=== PATIENT | male | born 1950 ===

== ENCOUNTER 2018-04-09 12:00 | Inpatient (IN) | payer OTHER ==
[2018-04-09 12:36] VITALS: BMI 33.7
[2018-04-09 13:20] LABS: #Basophils 0.1 thou/uL (0.0-0.2); #Eosinphils 0.4 thou/uL (0.0-0.7); #Lymphocytes 2.3 thou/uL (1.20-3.40); #Monocytes 1.1 thou/uL (0.11-0.59); %Basophils 0.4 % (0.0-1.0); %Eosinophils 2.8 % (0.0-10.0); %Lymphocytes 14.2 % (21.0-51.0); %Monocytes 6.7 % (0.0-10.0); %Neutrophils 75.9 % (42.0-75.0); Hemoglobin 9.5 g/dL (14.0-18.0); Mean Corpuscular HGB CONC 34.6 g/dL (32.0-36.0); Mean Corpuscular Hemoglobin 30.8 pg (27.0-31.0); Mean Corpuscular Volume 89.3 fL (78.0-98.0); Mean Platelet Volume 7.2 fL (7.4-10.4); Platelet Count 176 thou/uL (130-400); RBC Distribution Width 12.3 % (11.5-14.5); Red Blood Cell (RBC) Count 3.09 mill/uL (4.70-6.10); White Blood Cell (WBC) Count 15.8 thou/uL (4.8-10.8)
[2018-04-09 13:41] LABS: Anion Gap 11 mmol/L (10-20); BUN (Urea Nitrogen) 56 mg/dL (8.4-25.7); Calc. Creatinine Clearance 116 mL/min (70-130); Calcium 8.3 mg/dL (7.8-10.44); Carbon Dioxide 21 mmol/L (23-31); Chloride 109 mmol/L (98-107); Estimated GFR-MDRD Greater than 90; Glucose 99 mg/dL (80-115); Potassium 4.8 mmol/L (3.5-5.1); Sodium 136 mmol/L (136-145)
[2018-04-09] MEDS ORDERED: Ondansetron HCl/PF 4 MG/2 ML Vial IVP PRN ×2 (14:01→19:40)
[2018-04-09] MEDS ORDERED: PROPOFOL 200 MG/20 ML VIAL ONE (15:08)
[2018-04-09] MEDS: Sodium Chloride 0.9% 1,000 ML IV SCH (15:19)
[2018-04-09] MEDS: Pantoprazole 80 MG in Sodium Chloride 0.9% 100 ML IVP SCH (15:21)
--- NOTE | 2018-04-09 15:31 | HP ---
REASON FOR ADMISSION: Gastrointestinal bleed, acute blood loss anemia. HISTORY OF PRESENTING ILLNESS: The patient gives history of having onset of diarrhea around 1:30 in the morning. The diarrhea was black in color. This happened multiple times, nearly 5-6 times and each time he had to sit on the toilet for a long time due to colicky pain and tenesmus. [place] nauseous once, but no vomiting as such. The patient states he started albuterol inhaler, prednisone and antibiotic for upper respiratory infection a week back or so. He also takes aspirin and Plavix, but no other pain medications. No prior upper or lower endoscopies done. 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 He is from [facility]. No prior history of similar episodes in the past. No history of peptic ulcer disease. PAST MEDICAL AND SURGICAL HISTORY: Coronary artery disease with prior coronary artery bypass graft x2, one was ?9 years ago for 4-vessel and has had a redo done 4 years back for 1 vessel, hypertension, dyslipidemia, likely chronic obstructive pulmonary disease. CURRENT MEDICATIONS: Patient takes Dana 180 mg p.o. daily, Norvasc 5 mg daily, atorvastatin 80 mg p.o. daily, carvedilol 12.5 mg twice daily, Plavix 75 mg p.o. daily, aspirin 81 mg p.o. daily, lisinopril 20 mg daily, prednisone, albuterol inhaler, which was recently started. ALLERGIES: AMOXICILLIN. PERSONAL HISTORY: Smokes half pack a day and was smoking heavier before and has been a smoker for nearly 40 years now. Does not abuse alcohol or drugs. Lives with his . FAMILY HISTORY: Mother at the age of 87 years. He has had dementia. Father of massive [place] at the age of 57 years. CODE STATUS: FULL. Power of ip technology transactions attorney is his . REVIEW OF SYSTEMS: The following complete review of systems was negative, unless otherwise mentioned in the HPI or below: Constitutional: Weight loss or gain, ability to conduct usual activities. Skin: Rash, itching. Eyes: Double vision, pain. ENT/Mouth: Nose bleeding, neck stiffness, pain, tenderness. Cardiovascular: Palpitations, dyspnea on exertion, orthopnea. Respiratory: Shortness of breath, wheezing, cough, hemoptysis, fever or night sweats. Gastrointestinal: Poor appetite, abdominal pain, heartburn, nausea, vomiting, constipation, or diarrhea. Genitourinary: Urgency, frequency, dysuria, nocturia. Musculoskeletal: Pain, swelling. Neurologic/Psychiatric: Anxiety, depression. Allergy/Immunologic: Skin rash, bleeding tendency. PHYSICAL EXAMINATION: GENERAL: Patient is a 67-year-old male who is currently not in any acute distress. VITAL SIGNS: Blood pressure 110/60, pulse 67 per minute, respiratory rate 18 per minute, temperature 97.6 degrees Fahrenheit, saturating 100% on room air. NECK: Supple, no elevated JVD. EYES: Extraocular muscles intact. Pupils reacting to light. ORAL CAVITY: Mucous membranes are dry. No exudates or congestion. CARDIOVASCULAR SYSTEM: S1, S2 heard. Regular rhythm. RESPIRATORY SYSTEM: Air entry 1+ bilateral. Scattered rhonchi plus bilateral. ABDOMEN: Soft, bowel sounds heard. No tenderness, rigidity or guarding. EXTREMITIES: No peripheral edema or calf tenderness. VASCULAR SYSTEM: Peripheral pulses 1+ bilateral, no ischemic ulcerations or gangrene. CENTRAL NERVOUS SYSTEM: No gross focal deficits noted. Patient is alert, awake , oriented well. PSYCHIATRIC SYSTEM: Patient's mood is euthymic. No hallucinations or delusions. LABORATORY DATA: Please note patient went to [facility] ER from where he was transferred here. Initial hemoglobin and hematocrit was 9 and 25 with platelet count of 160. Repeat hemoglobin and hematocrit done is 9 and 27 with platelet count of 176 here. Has a white count of 15, BUN 56, creatinine 0.7, serum bicarbonate is 21 with 75% neutrophils. One set of troponin was less than 0.05. PT/INR was 12.6 and 1.1 done at [facility]. CLINICAL IMPRESSION AND PLAN: The patient will be admitted to [facility] for GI bleed , likely upper with acute blood loss anemia. He will be on Protonix drip. We will keep him n.p.o. except medications. Dr. Pugh, wholesale loan processor has been consulted. We will continue his home medications of Norvasc, atorvastatin , Coreg, multivitamin for now. His lisinopril will be held due to acute kidney injury from gastrointestinal bleed. We will also place him on DuoNebs for now. We will continue to closely monitor him with serial hemoglobin and hematocrit. He is currently hemodynamically stable for now. [facility]
--- NOTE | 2018-04-09 15:54 | CON ---
DATE OF CONSULTATION: 04/09/2018 CONSULTING PHYSICIAN: Dr. Gill. REASON FOR CONSULTATION: GI bleed and COPD exacerbation. HISTORY OF PRESENT ILLNESS: This is a 67-year-old male from [place]. He is in town as part of [employer] for the football game at [employer] today. He has been feeling bad for the last 3-4 days. He saw his primary care physician last week and was prescribed some prednisone, some antibiot ics and some inhalers for difficulty with breathing. He has had a cough that has been unrelenting. Last night, he developed diarrhea. He has some black colored stools. He presented to an outlying ER today severely anemic and was brought here for further evaluation. PAST MEDICAL HISTORY: 1. Probable COPD. 2. Coronary artery disease. 3. Hypertension. 4. Myocardial infarction. PAST SURGICAL HISTORY: Coronary bypass grafting surgery. SOCIAL HISTORY: He is about a pack per day smoker. He is trying to quit. Does not consume alcohol, does not use illicit drugs. 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 He is supposed to be retired, but he continues to be quite busy with his work. MEDICATIONS PRIOR TO ADMISSION: He has been taking prednisone, Plavix, low-dose aspirin, some type o f inhaler, amlodipine 5 mg daily, atorvastatin 80 mg daily, carvedilol 12.5 mg b.i.d., Plavix 75 mg d aily, lisinopril 20 mg daily, aspirin 81 mg daily. ALLERGIES: AMOXICILLIN. REVIEW OF SYSTEMS: Twelve point review of systems otherwise negative. PHYSICAL EXAMINATION: VITAL SIGNS: Temperature 97.6, pulse 67, respirations 18, O2 sat 100%, blood pressure 110/59. GENERAL: He is awake and alert, in no distress. HEENT: Unremarkable. NECK: Without adenopathy, JVD, or bruits. LUNGS: He has diffuse bilateral expiratory wheezing. CARDIAC: S1, S2 regular, without murmur. ABDOMEN: Soft, nontender, nondistended. EXTREMITIES: No clubbing, cyanosis, or edema. LABORATORY DATA: Sodium 136, potassium 4.8, chloride 109, CO2 21, BUN 56, creatinine 0.7, glucose 99 . White blood cell count 15.8, hematocrit 27.6, platelet count 176. ASSESSMENT: 1. Chronic obstructive pulmonary disease with exacerbation. 2. Probable upper gastrointestinal bleed given history of melena and elevated BUN in association wit h abdominal pain. PLAN: 1. Leave the steroids, nebulization treatments, and inhalers for COPD exacerbation. 2. Gastrointestinal consultation for gastrointestinal bleed. 3. We will follow with you. The above encompassed 70 minutes of time. Of that time, greater than 50% was spent with the patient and/or on the patient's unit in the hospital.
[2018-04-09] MEDS ORDERED: Metoprolol Tartrate 5 MG/5 ML VIAL IVP SCH (17:56)
[2018-04-09 18:04] LABS: Hemoglobin 9.4 g/dL (14.0-18.0)
[2018-04-09] MEDS: Mometasone/Formoterol 120 PUFF INHALER INH SCH (18:15)
[2018-04-09 18:32] LABS: INR-International Normal Ratio 1.1; PTT 25.8 SEC (22.9-36.1); Prothrombin Time 13.9 SEC (12.0-14.7)
--- NOTE | 2018-04-09 18:42 | CON ---
DATE OF CONSULTATION: 04/09/2018 REASON FOR CONSULTATION: Melena. CONSULTING PHYSICIAN: April Samano MD HISTORY OF PRESENT ILLNESS: The patient is a 67-year-old male with past medical history of coronary artery disease, status 4-vessel CABG, hypertension, hyperlipidemia, and chronic obstructive pulmonary disease presenting with complaints of melena. He states that approximately 1 week ago, he was havin g increased upper respiratory infections characterized by increased cough, congestion, and fever. He was seen by his PCP for this particular condition and placed on prednisone, antibiotics and inhalers for treatment of these symptoms. He states that he was doing better on this regimen up until this m orning when he had the acute onset of diarrhea; however, with the diarrhea-like bowel movements, ther e were noted to be dark black and liquid in color and consistency. He had approximately 6-7 discrete episodes of these black colored stools which was then prompted him to seek healthcare assistance of the local [facility] urgent care center. While there, he was noted to be anemic, but serial H&H yielded a decreased blood counts even while he was at the urgent care clinic prompting transfer here to the hospital for more urgent evaluation. He does complain of some increased lower back pain, but otherwise is doing well. Currently, he denies any nausea, vomiting, fevers, chills, hematochezia, he matemesis, dysphagia, odynophagia; however, he does endorse some mild increased left upper quadrant/m idepigastric abdominal pain that has been present only for the last day. REVIEW OF SYSTEMS: A 10-category review of systems was obtained with all responses negative except f or the pertinent positives as listed in the HPI. PAST MEDICAL HISTORY: As per HPI. PAST SURGICAL HISTORY: Four-vessel CABG done in 2013. FAMILY HISTORY: Denies any GI malignancy. SOCIAL HISTORY: Smokes between a half to full pack per day and has been doing so for nearly 40 years . Denies any alcohol or illicit drug use. OUTPATIENT MEDICATIONS: Reviewed. ALLERGIES: AMOXICILLIN. PHYSICAL EXAMINATION: VITAL SIGNS: Temperature 97.6, pulse 76, blood pressure 131/70, respiratory rate 18, satting 100% on room air. GENERAL: The patient is lying in bed, in no acute distress. Alert and oriented x4. HEENT: . NECK: Supple. No JVD noted. CARDIOVASCULAR: Regular rate and rhythm with no discernible murmurs, gallops or rubs. RESPIRATORY: Diffuse end expiratory wheezing heard in all lung villalobos; however, did not hear any ral es or crackles. ABDOMEN: Normoactive bowel sounds, soft, nondistended. Tenderness to palpation in the left upper qu adrant and mid epigastric regions. EXTREMITIES: No cyanosis, clubbing or edema. LABORATORY DATA: CBC with a white blood cell count of 15.8, hemoglobin 9.5, hematocrit 27.6, platele ts 176. Chemistry with a sodium of 136, potassium 4.8, chloride 109, CO2 21, BUN 56, creatinine 0.79 , glucose 99. IMAGING DATA: No current GI imaging is available for review. ASSESSMENT AND PLAN: The patient is a 67-year-old male with past medical history of coronary artery disease, status post 4-vessel CABG, hypertension, hyperlipidemia, and chronic obstructive pulmonary d isease presenting with anemia and melena consistent with an upper GI bleed. Upper GI bleeding: The patient has a recent history of being placed on prednisone as part of treatme nt regarding supposed upper respiratory tract infection; however, the patient was also currently taki ng aspirin and Plavix on top of this in relation to his coronary artery disease. With the addition o f all three of these medications, he could potentially generate GI bleeding and/or erosions/ulceratio ns within the upper GI tract. Given his decreased H&H while during his stay at the urgent care [facility] as well as the elevated BUN to creatinine ratio, an upper GI bleeding is more likely. Differential could include esophagitis, gastritis, peptic ulcer disease, arteriovenous malformation, [place] le yeny and/or GI malignancy. RECOMMENDATIONS: 1. We would continue to trend H&H and transfuse as necessary to maintain an H&H of 02/19. 2. Continue to monitor for signs of active gastrointestinal bleeding. 3. We would keep patient n.p.o. in anticipation for upper endoscopy. We will plan for upper endosco py later tonight for evaluation for possible bleeding. We will continue patient on PPI drip, given h igh likelihood of upper gastrointestinal bleeding. 4. We would avoid any NSAIDs. 5. Further recommendations to follow upper endoscopy. We will continue to follow. Please call with any questions.
[2018-04-09 18:45] LABS: Acetaminophen Less than 6.0 mcg/mL (10.0-30.0); Alcohol Less than 10 mg/dL (Less than 10); Salicylate Less than 8.0 mg/dL (15.0-30.0)
[2018-04-09 18:49] LABS: CKMB 2.9 ng/mL (0-6.6); Troponin I Less than 0.010 ng/mL (< 0.028)
[2018-04-09] MEDS ORDERED: Promethazine HCl 25 MG/ML VIAL SLOW IVP PRN (19:40)
[2018-04-09] MEDS ORDERED: Promethazine HCl 25 MG/ML VIAL IM PRN (19:40)
[2018-04-09 20:30] LABS: Amphetamine Not Detected (NotDetected); Barbiturates Screen Not Detected (NotDetected); Benzodiazepine Screen Not Detected (NotDetected); Cocaine Metabolite Screen Not Detected (NotDetected); Medtox Control Line Valid? VALID (VALID); Medtox Reader # READER 4; Methadone Not Detected (NotDetected); Methamphetamine Not Detected (NotDetected); Opiate Screen Detected (NotDetected); Oxycodone Screen Not Detected (NotDetected); Phencyclidine (PCP) Not Detected (NotDetected); THC/Cannabinoid Screen Not Detected (NotDetected); Tricyclic Screen Not Detected (NotDetected)
[2018-04-09] MEDS ORDERED: Non-Formulary Item 1 EACH (Carvedilol [Coreg] 12.5 MG) PO SCH (21:00)
--- NOTE | 2018-04-09 21:06 | OP ---
DATE OF PROCEDURE: 04/09/2018 INDICATION FOR PROCEDURE: Melena, anemia. PROCEDURE: Esophagogastroduodenoscopy with control of hemorrhage. DESCRIPTION OF PROCEDURE: After the risks and benefits of the procedure were explained to the patien t including risks of bleeding, infection, perforation, reaction to anesthesia, aspiration and/or pain , informed consent was obtained. The patient was then taken to the endoscopy suite where deep sedati on was administered via propofol and anesthesia support. Once adequate sedation was achieved, the st arletteard gastroscope was introduced into the mouth with intubation of the esophagus, stomach and proxim al small intestine with the findings listed below. The patient tolerated the procedure well with no immediate perioperative complications. FINDINGS: Esophagus: Normal appearing mucosa was seen in the proximal and mid esophagus. Mild to moderate tor tuosity of the distal esophagus was also seen. A large hiatal hernia was seen in the distal esophagu s with increased friability of the esophageal mucosa at the gastroesophageal junction. During the co urse of the procedure, there was mild oozing and small hematoma formation upon passage of the scope d ue to increased movement with breathing, this was intervened upon with bipolar cautery with good hemo stasis achieved. STOMACH: Normal appearing mucosa was seen in the gastric cardia, fundus and proximal body. A 2-3 mm clot was seen along the greater curvature with they did not display any underlying abnormalities wit h aggressive irrigation and suctioning. Normal appearing mucosa was also seen along the lesser curva ture; however, a 5-6 mm cratered ulceration with heaped edges was seen along the lesser curvature in the antrum with a small dark spot in the center of the ulceration itself g given that this would be c onsidered high risk stigmata of bleeding. This is most likely a recent source of the patient's melen a. This was intervened upon with bipolar cauterization. However, during the procedure, the patient exhibited some agitation making cauterization of this lesion difficult with some oozing of blood to t he surrounding tissue with increased movement of the stomach; however, at the end of the procedure, t here was no active bleeding seen from this particular ulceration. DUODENUM: There were 2 small ulcerations seen in the duodenal bulb that were clean based and did not display any high risk stigmata of active or recent bleeding. Given the low likelihood of rebleeding , these were not intervened upon. Normal appearing mucosa was seen in the second portion of the duod enum. IMPRESSION: 1. Large hiatal hernia seen in the distal esophagus with increased friability at the GE junction exh ibiting mild oozing/bleeding that required bipolar cauterization. 2. A 2-3 mm small superficial ulcerations seen in the distal body without any high risk stigmata of bleeding. 3. A 5-6 mm cratered ulceration seen along the lesser curvature in the proximal antrum with dark spo t in the center status post bipolar cauterization with good hemostasis achieved. 4. Two small clean based ulcerations were seen in the duodenal bulb. RECOMMENDATIONS: 1. We would continue to trend H and H and transfuse as necessary to maintain an H and H of 7/21. 2. We would continue to monitor for signs of active gastrointestinal bleeding. 3. We will continue the PPI drip for approximately 24 hours total therapy at which point he can be t ransferred to 40 mg PPI b.i.d. 4. We will place the patient on a clear liquid diet, but would not advance diet for the next 12-24 h ours given increased risk of rebleeding and during this time, 5. We would avoid all NSAIDs in this patient. 6. We would continue to hold Plavix for now in light of recent gastrointestinal bleeding. 7. If the patient requires additional endoscopic management, I would recommend general anesthesia gi emma the significant movement during the procedure today. We will continue to follow. Please call with any questions.
[2018-04-09] MEDS: Atorvastatin Calcium 40 MG TAB PO SCH (21:26)
[2018-04-09] MEDS: Carvedilol 6.25 MG TAB PO SCH (21:26)
[2018-04-09 21:54] LABS: Troponin I Less than 0.010 ng/mL (< 0.028)
[2018-04-10] MEDS: Sodium Chloride 0.9% 1,000 ML IV SCH ×2 (00:15→16:51)
[2018-04-10] MEDS: Pantoprazole 80 MG in Sodium Chloride 0.9% 100 ML IVP SCH ×2 (00:27→10:55)
[2018-04-10 00:44] LABS: Hemoglobin 8.5 g/dL (14.0-18.0)
[2018-04-10 06:08] LABS: Anion Gap 12 mmol/L (10-20); BUN (Urea Nitrogen) 30 mg/dL (8.4-25.7); Calc. Creatinine Clearance 122 mL/min (70-130); Calcium 8.3 mg/dL (7.8-10.44); Carbon Dioxide 19 mmol/L (23-31); Chloride 109 mmol/L (98-107); Estimated GFR-MDRD Greater than 90; Glucose 130 mg/dL (80-115); Potassium 4.6 mmol/L (3.5-5.1); Sodium 135 mmol/L (136-145)
[2018-04-10 06:43] LABS: Band 1 % (5-11); Hemoglobin 8.4 g/dL (14.0-18.0); Hypochromia SLIGHT = 6-15 cells (100X) (0-5/hpf); Lymphocytes 2 % (21-51); MDiff Complete? YES; Mean Corpuscular HGB CONC 33.9 g/dL (32.0-36.0); Mean Corpuscular Hemoglobin 30.2 pg (27.0-31.0); Mean Platelet Volume 7.6 fL (7.4-10.4); Neutrophil 97 % (42-75); PLT Morphology Comment Appears Adequate; Platelet Count 167 thou/uL (130-400); RBC Distribution Width 12.3 % (11.5-14.5); Red Blood Cell (RBC) Count 2.77 mill/uL (4.70-6.10); White Blood Cell (WBC) Count 15.2 thou/uL (4.8-10.8)
[2018-04-10] MEDS: Mometasone/Formoterol 120 PUFF INHALER INH SCH ×2 (08:03→19:50)
[2018-04-10] MEDS: Carvedilol 6.25 MG TAB PO SCH ×2 (08:04→22:10)
[2018-04-10] MEDS: Multivit, Therapeutic 1 TAB PO SCH (08:04)
[2018-04-10] MEDS: Amlodipine 5 MG TAB PO SCH (08:05)
[2018-04-10] MEDS: Acetaminophen 325 MG TAB PO PRN ×3 (08:07→22:10)
[2018-04-10] MEDS ORDERED: MULTIVITAMIN PO SCH (09:00)
[2018-04-10] MEDS ORDERED: Non-Formulary Item 1 EACH (Atorvastatin Calcium [Atorvastatin Calcium] 80 MG) PO SCH (09:00)
[2018-04-10] MEDS ORDERED: Loratadine 10 MG TAB PO STA (10:04)
--- NOTE | 2018-04-10 12:24 | PDOC.PN ---
- Subjective Encounter Start Date: 04/10/18 Encounter Start Time: 11:00 Subjective: no further bm or abd pain -: c/o coughing episodes which feels like he is drowning -: at bedside - Objective Resuscitation Status: Resuscitation Status FULL:Full Resuscitation MAR Reviewed: Yes Vital Signs & Weight: Vital Signs (12 hours) Temp Pulse Resp BP BP BP Pulse Ox 04/10/18 11:55 91 16 04/10/18 11:39 98 F 94 18 122/66 94 L 04/10/18 08:30 98 F 114 H 22 H 96 04/10/18 08:05 114 H 04/10/18 08:04 114/72 04/10/18 08:03 114 H 16 04/10/18 07:51 114 H 16 04/10/18 07:37 98.0 F 99 16 117/64 96 04/10/18 04:00 98.2 F 90 16 109/74 95 Weight Weight 196 lb 8 oz I&O: 04/09/18 04/10/18 04/11/18 06:59 06:59 06:59 Intake Total 1200 Output Total 1225 Balance -25 Result Diagrams: 04/10/18 04:57 04/10/18 04:58 Phys Exam - Physical Examination HEENT: PERRLA, moist MMs Neck: no JVD, supple Respiratory: no wheezing, no rales rhonchi+ Cardiovascular: RRR, no significant murmur Gastrointestinal: soft, no distention, positive bowel sounds Musculoskeletal: no edema, pulses present Neurological: non-focal, moves all 4 limbs Psychiatric: normal affect, A&O x 3 Dx/Plan (1) GI bleed Code(s): K92.2 - GASTROINTESTINAL HEMORRHAGE, UNSPECIFIED Status: Acute Qualifiers: GI bleed type/associated pathology: gastric ulcer Qualified Code(s): K25.4 - Chronic or unspecified gastric ulcer with hemorrhage Comment: hiatal hernia with lower eso ulcer, gastric antral ulcer, duodenal bulb ulcer (2) Acute blood loss anemia Code(s): D62 - ACUTE POSTHEMORRHAGIC ANEMIA Status: Acute (3) CAD (coronary artery disease) Code(s): I25.10 - ATHSCL HEART DISEASE OF [place] CORONARY ARTERY W/O ANG PCTRS Status: Chronic Qualifiers: Coronary Disease-Associated Artery/Lesion type: bypass graft [place] vs. transplanted heart: [place] heart Associated angina: without angina Qualified Code(s): I25.810 - Atherosclerosis of coronary artery bypass graft(s) without angina pectoris (4) HTN (hypertension) Code(s): I10 - ESSENTIAL (PRIMARY) HYPERTENSION Status: Chronic Qualifiers: Hypertension type: essential hypertension Qualified Code(s): I10 - Essential (primary) hypertension (5) COPD (chronic obstructive pulmonary disease) Status: Chronic Qualifiers: COPD type: COPD with acute exacerbation Qualified Code(s): J44.1 - Chronic obstructive pulmonary disease with (acute) exacerbation - Plan is on protonix drip for another 24hrs -: abnormal vent cond beats resolved after starting coreg (happened when he wa -: -s npo for egd) -: is on steroids, nebs. Pt wants his malorie re-instituted -: may tx to tele or medical floor if ok with * . Review of Systems - Medications/Allergies Allergies/Adverse Reactions: Allergies Allergy/AdvReac Type Severity Reaction Status Date / Time amoxicillin Allergy Intermediate Rash Verified 04/09/18 12:25 Medications: Current Medications Acetaminophen (Tylenol) 650 mg PO Q4H PRN PRN Reason: Headache/Fever or Pain Last Admin: 04/10/18 08:07 Dose: 650 mg Albuterol/Ipratropium (Duoneb) 3 ml NEB [id number] [facility] Last Admin: 04/10/18 11:55 Dose: 3 ml Amlodipine Besylate (Norvasc) 5 mg PO DAILY [facility] Last Admin: 04/10/18 08:05 Dose: 5 mg Atorvastatin Calcium (Lipitor) 80 mg PO HS [facility] Last Admin: 04/09/18 21:26 Dose: 80 mg Azelastine HCl (Azelastine) 0 ml NS BID [facility] Carvedilol (Coreg) 12.5 mg PO BID [facility] Last Admin: 04/10/18 08:04 Dose: 12.5 mg Sodium Chloride (Normal Saline 0.9%) 1,000 mls @ 50 mls/hr IV .Q20H [facility] Last Admin: 04/10/18 00:15 Dose: 1,000 mls Pantoprazole Sodium 80 mg/ (Sodium Chloride) 100 mls @ 10 mls/hr IVP INF [facility] Last Admin: 04/10/18 10:55 Dose: 100 mls Loratadine (Claritin) 10 mg PO DAILY [facility] Methylprednisolone Sodium Succinate (Solu-Medrol) 20 mg IVP Q6HR [facility] Last Admin: 04/10/18 06:40 Dose: 20 mg Mometasone Furoate/Formoterol Fumar (Dulera 200 Mcg/5 Mcg Inhaler) 2 puff INH BID-RT [facility] Last Admin: 04/10/18 08:03 Dose: 2 puff Multivitamins (Theragran) 1 tab PO DAILY [facility] Last Admin: 04/10/18 08:04 Dose: 1 tab Ondansetron HCl (Zofran) 4 mg IVP Q6H PRN PRN Reason: Nausea/Vomiting Sodium Chloride (Flush - Normal Saline) 10 ml IVF Q12HR [facility] Last Admin: 04/10/18 08:06 Dose: 10 ml Sodium Chloride (Flush - Normal Saline) 10 ml IVF PRN PRN PRN Reason: Saline Flush
--- NOTE | 2018-04-10 14:17 | PRG ---
DATE OF SERVICE: 04/10/2018 SUBJECTIVE: From a respiratory standpoint, he is doing better and the wheezing is stopped. OBJECTIVE: VITAL SIGNS: Temperature is 98.0, pulse 91, respiration 16, O2 sat 94% on room air, blood pressure 1 20/66. HEENT: Unremarkable. NECK: No JVD. LUNGS: No wheezing. CARDIAC: S1 and S2 regular. ABDOMEN: Soft. EXTREMITIES: No edema. LABORATORY DATA: Tox screen negative. Hemoglobin 8.4, hematocrit 24.6, platelet count 167. White b lood cell count 15.2. Sodium 135, potassium 4.6, BUN 30, creatinine 0.7, glucose 130. ASSESSMENT: 1. Upper gastrointestinal bleeding. 2. Chronic obstructive pulmonary disease exacerbation. PLAN: I will go ahead and stop the steroids. He should continue with nebulization treatments and th e Dulera. From a pulmonary standpoint, he is safe for discharge, but I think he is being [facility] to continue gastrointestinal treatment.
--- NOTE | 2018-04-10 15:21 | CON ---
DATE OF CONSULTATION: 04/10/2018 DATE OF ADMISSION: 04/09/2018 INDICATION FOR CONSULTATION: A 67-year-old gentleman who presented with a GI bleed, anemia and had episodes of accelerated idioventricular rhythm. 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 He then last night developed some abdominal discomfort and diarrhea. He thought he had food poisoning, but then he has been having dark stools. He was on the toilet most of the hours with diarrhea. He presented to emergency room and was found to have GI bleed. I believe GI had seen him and was cauterized in the post-procedure time. He also was noted to have some bouts of AIVR. We were asked to see him for this. He has also had a long history of coronary artery disease and with bypass surgery x4 23 years ago. He also had repeat bypass surgery about 4 years ago in [place], [place]. All of the bypasses were closed except for one day to attempt to do a stent prior to bypass surgery. The stent failed and he ended up with having a [place] to the left anterior descending artery. He said he saw his stove cleaner a few weeks or months ago. Echocardiogram was noted to be about 35%-40%. This was in 01/2018. He had a stress test about a year ago which showed no evidence of new ischemia. He has been asymptomatic. He denies any chest pain. He does have shortness of breath or dyspnea on exertion. Otherwise, he has been doing relatively well from a cardiac standpoint and routinely sees his stove cleaner. He has been on Plavix as well as aspirin. He also has significant problems with back pain. , he takes prednisone. He is also on Aleve for his back pain and most likely this is a combination that provoked his GI bleed. At this time , he denies any pain from a cardiac standpoint. He does have some discomfort in his back, but otherwise is unremarkable. His troponin I's are negative for myocardial infarction. PAST MEDICAL HISTORY: Significant for coronary artery disease as noted above and hypertension. He has had history of myocardial infarctions in the past. He has COPD. He has chronic back pain. He has multiple allergies. He has had bilateral carotid endarterectomies performed. SOCIAL HISTORY: He continues to smoke unfortunately. He says he is trying to quit. He was to start [employer]. 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 He does not have any illicit drug use or alcohol use. MEDICATIONS PRIOR TO ADMISSION: Plavix, low-dose aspirin, inhalers, amlodipine , prednisone, atorvastatin, Coreg 12.5 b.i.d., Plavix, lisinopril, and aspirin. ALLERGIES: Allergic to AMOXICILLIN. REVIEW OF SYSTEMS: Twelve point review of systems unremarkable except noted in the history of present illness. PHYSICAL EXAMINATION: GENERAL: Reveals well-developed, well-nourished gentleman. VITAL SIGNS: Blood pressure 114/72, heart rate is in the 80s-114 and shows a sinus rhythm. He did have AIVR earlier, but he has had no AIVR since he has been resumed on his medications. Respiratory rate is 20. HEENT: Shows head to be normocephalic and atraumatic. He has bilateral well healed incisions over both carotid areas. I did not hear any significant bruits. CHEST: Has diffuse expiratory coarse wheezing. CARDIOVASCULAR: Heart sounds are distant, but did not hear any significant abnormalities and no gross murmurs. Regular rate and rhythm. He has well- healed midline surgical incision. However, he does have some instability of the sternum, which he says is old. ABDOMEN: Unremarkable. At this time, positive bowel sounds are present. EXTREMITIES: Show no clubbing, cyanosis, edema. Pedal pulses are present. NEUROLOGIC: He appears to be intact. SKIN: Warm and dry. LABORATORY DATA: Shows potassium of 4.6. Cardiac enzymes are negative. His blood sugar is 130 today. Previously was 99. His INR was 1.1. Troponin I is less than 0.01, potassium was 4.6. His creatinine was 0.75. IMPRESSION: 1. Episode of accelerated idioventricular rhythm, but seems to have resolved after resuming his medications. He will need to visit with his stove cleaner after he is released, but appears to be stable at this time. 2. Coronary artery disease, status post bypass surgery, status post stent failure, status post bypass failure with apparently no further intervention that can be performed. He did have left internal mammary artery to the left arterial descending and this was the last procedure done about 4 years ago and it would appear that he has significant coronary artery disease, but is followed on a routine basis. His enzymes are negative. He denies chest pain and no further workup would be indicated at this time. 3. Cardiomyopathy, ejection fraction has been estimated at 35%-40% by echocardiogram in 01/2018 and I would refer him back to his primary stove cleaner for this. At this time, from a cardiac standpoint, he remains otherwise stable and I would continue his present medications. He could be discharged once he is cleared from GI. EMILY
[2018-04-10] MEDS ORDERED: Azelastine 137 MCG/Spray 30 ML NS SCH (21:00)
--- NOTE | 2018-04-10 21:00 | PRG ---
DATE OF SERVICE: 04/10/2018 REASON FOR CONSULTATION: Melena. SUBJECTIVE: The patient did well after the EGD performed yesterday with no further events of melena or GI bleeding. He denies any abdominal pain at the current point in time as well. Currently, denie s any nausea, vomiting, fevers, chills, GI bleeding, diarrhea or constipation. OBJECTIVE: VITAL SIGNS: Temperature 98.7, pulse 97, blood pressure 129/68, respiratory rate 18, satting 98% on 2 liters nasal cannula. GENERAL: The patient is lying in bed in no acute distress. Alert and oriented x4. CARDIOVASCULAR: Regular rate and rhythm. RESPIRATORY: Mild expiratory wheezes in all lung villalobos, but improved from previous. ABDOMEN: Normoactive bowel sounds, soft, nontender, nondistended. EXTREMITIES: No cyanosis, clubbing or edema. LABORATORY DATA: CBC with a white blood cell count of 15.2, hemoglobin 8.4, hematocrit 24.6, platele ts 167. Chemistry with sodium of 135, potassium 4.6, chloride 109, CO2 19, BUN 30, creatinine 0.75, glucose 130. IMAGING DATA: EGD performed on 04/09/2018 showed moderate tortuosity of the distal esophagus that em ptied into a large hiatal hernia. There was some increased friability of the esophageal mucosa at th e gastroesophageal junction that was intervened upon with bipolar cautery. There was also a 2-3 mm c lot seen on the greater curvature, but did not display any underlying abnormalities. However, there was 5-6 mm cratered ulceration with heaped edges along the lesser curvature of the antrum with a dark spot in the middle of it concerning for high risk stigmata of bleeding. This was intervened upon wi th bipolar cauterization. There were also two small ulcerations seen in the duodenal bulb, they were clean based and did not display any high risk stigmata of bleeding. These were not intervened upon. ASSESSMENT AND PLAN: The patient is a 67-year-old male with past medical history of coronary artery disease, status post 4-vessel CABG, hypertension, hyperlipidemia, and chronic obstructive pulmonary d isease presenting with melena and EGD consistent with gastric ulcerations. Upper GI bleeding: The patient presented with a history of being placed on prednisone in the recent past his prior treatment for an upper respiratory tract infection, but was also taking aspirin and Pl avix on top of this for his coronary artery disease. He was doing well until the day of admission wh en he said he was experienced approximately 6-7 black colored bowel movements concerning for melena. He subsequently underwent EGD on 04/09/2018 with the finding of increased friability of the gastroes ophageal junction ulcerations within the stomach as well as ulcerations within the duodenum concernin g for medication-induced gastritis and ulceration. The lesion on the lesser curvature of the stomach did display some high risk stigmata of bleeding, but was successfully intervened upon with bipolar c auterization. Given this higher risk finding during the upper endoscopy, he needs to be monitored ov er the next 48-72 hours for signs of rebleeding as this will be done at that time period they would c ontinue to bleed. RECOMMENDATIONS: 1. We would continue to trend H&H and transfuse as necessary to maintain an H&H of 7/21. 2. Continue to monitor for signs of active gastrointestinal bleeding. 3. We will transfer patient to PPI b.i.d. and he will need to be on this regimen until repeat upper endoscopy in 8-12 weeks. 4. I would recommend a repeat upper endoscopy in 8-12 weeks for evaluation of the gastric ulceration s and confirm healing at that time, I advised the patient to find a asphalt paver operator in the [place]/ [place] area to follow up with this particular finding. 5. If the patient is doing well with no further episodes of melena or drop in his H&H by tomorrow, t he patient could be considered for discharge. We will continue to follow. Please call with any questions.
[2018-04-10] MEDS: Atorvastatin Calcium 40 MG TAB PO SCH (22:10)
[2018-04-10] MEDS ORDERED: Loratadine 10 MG TAB PO SCH (22:15)
[2018-04-10] MEDS: Azelastine 137 MCG/Spray 30 ML NS SCH (22:21)
[2018-04-11] MEDS: Mometasone/Formoterol 120 PUFF INHALER INH SCH ×2 (07:55→20:36)
--- NOTE | 2018-04-11 08:45 | PDOC.CTH ---
Cardiology Progress Note - Subjective The pt seen and examined. No overnight events. No cardiac complaints. - Objective Vital Signs Temp Pulse Resp BP BP Pulse Ox 04/11/18 08:13 97.8 F 89 20 98 04/11/18 07:56 89 20 98 04/11/18 07:35 97.8 F 87 16 122/66 94 L 04/11/18 04:00 97.9 F 94 18 112/56 L 96 04/10/18 22:10 128/67 Weight 196 lb 8 oz 04/10/18 04/11/18 04/12/18 06:59 06:59 06:59 Intake Total 1200 1350 Output Total 1225 Balance -25 1350 - Physical Examination General/Neuro: alert & oriented x3 Neck: no JVD present Lungs: CTA Heart: RRR Abdomen: soft Extremities: other: (No edema) - Telemetry Telemetry Rhythm: SR - Labs Result Diagrams: 04/10/18 04:57 04/10/18 04:58 Troponin/CKMB CK-MB (CK-2) 2.9 ng/mL (0-6.6) 04/09/18 18:16 Troponin I Less than 0.010 ng/mL (< 0.028) 04/09/18 21:19 - Assessment/Plan 1. S/p episodes of AIVR - since Coreg was started, no more episode AIVR. 2. GI bleed with s/p cauterization on 04/09/18 - stable, managed by GI 3. CAD with redo CABG in 2013 in [place], [place] - stable; on BBlocker and Statin, but not on ASA due to s/p GI bleed 4. HTN - stable with current med 5. COPD - stable with RA 6. Current smoker - Smoking cessation education given to the pt. He stated he will get Chentix. MAR reviewed * From Cardiac standpoint, the pt is stable to d/c home. 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 Review of Systems - Review of Systems Constitutional: reports: no symptoms reported EENTM: reports: no symptoms reported Respiratory: reports: no symptoms reported Cardiac (ROS): reports: no symptoms reported ABD/GI: reports: no symptoms reported : reports: no symptoms reported Musculoskeletal: reports: no symptoms reported
[2018-04-11 08:58] LABS: Hemoglobin 7.6 g/dL (14.0-18.0)
[2018-04-11] MEDS ORDERED: Non-Formulary Item 1 EACH (Fexofenadine Hcl [Allegra Allergy] 180 MG) PO SCH (09:00)
[2018-04-11] MEDS: Amlodipine 5 MG TAB PO SCH (09:09)
[2018-04-11] MEDS: Multivit, Therapeutic 1 TAB PO SCH (09:10)
[2018-04-11] MEDS: Carvedilol 6.25 MG TAB PO SCH ×2 (09:10→22:07)
[2018-04-11] MEDS: Loratadine 10 MG TAB PO SCH (09:10)
[2018-04-11 09:36] LABS: Anion Gap 12 mmol/L (10-20); BUN (Urea Nitrogen) 26 mg/dL (8.4-25.7); Calc. Creatinine Clearance 115 mL/min (70-130); Calcium 8.4 mg/dL (7.8-10.44); Carbon Dioxide 22 mmol/L (23-31); Chloride 106 mmol/L (98-107); Estimated GFR-MDRD Greater than 90; Glucose 126 mg/dL (80-115); Potassium 4.4 mmol/L (3.5-5.1); Sodium 136 mmol/L (136-145)
[2018-04-11 10:01] LABS: Hemoglobin 7.2 g/dL (14.0-18.0); Mean Corpuscular HGB CONC 34.2 g/dL (32.0-36.0); Mean Corpuscular Hemoglobin 30.4 pg (27.0-31.0); Mean Corpuscular Volume 88.9 fL (78.0-98.0); Mean Platelet Volume 7.2 fL (7.4-10.4); Platelet Count 165 thou/uL (130-400); RBC Distribution Width 12.5 % (11.5-14.5); Red Blood Cell (RBC) Count 2.36 mill/uL (4.70-6.10); White Blood Cell (WBC) Count 24.7 thou/uL (4.8-10.8)
[2018-04-11] MEDS: Azelastine 137 MCG/Spray 30 ML NS SCH ×2 (10:56→22:16)
[2018-04-11 11:45] LABS: Band 2 % (5-11); Lymphocytes 9 % (21-51); MDiff Complete? YES; Metamyelocyte 1 % (0-0); Monocytes 3 % (0-10); Myelocyte 2 % (0-0); Neutrophil 83 % (42-75); RBC Morphology Normal
--- NOTE | 2018-04-11 12:59 | PDOC.PN ---
- Subjective Encounter Start Date: 04/11/18 Encounter Start Time: 09:15 Subjective: no bm or zia bleeding -: no abd pain -: breathing is better after taking claritin per patient, at bedside - Objective Resuscitation Status: Resuscitation Status FULL:Full Resuscitation MAR Reviewed: Yes Vital Signs & Weight: Vital Signs (12 hours) Temp Pulse Resp BP BP Pulse Ox 04/11/18 11:39 97.7 F 78 16 118/60 93 L 04/11/18 10:20 93 18 04/11/18 09:10 128/67 04/11/18 09:09 89 04/11/18 08:13 97.8 F 89 20 98 04/11/18 07:56 89 20 98 04/11/18 07:35 97.8 F 87 16 122/66 94 L 04/11/18 04:00 97.9 F 94 18 112/56 L 96 Weight Weight 196 lb 8 oz I&O: 04/10/18 04/11/18 04/12/18 06:59 06:59 06:59 Intake Total 1200 1350 Output Total 1225 650 Balance -25 1350 -650 Result Diagrams: 04/11/18 09:39 04/11/18 08:26 Phys Exam - Physical Examination HEENT: PERRLA, moist MMs Neck: no JVD, supple Respiratory: no wheezing, no rales Cardiovascular: RRR, no significant murmur Gastrointestinal: soft, non-tender, no distention, positive bowel sounds Musculoskeletal: no edema, pulses present Neurological: non-focal, moves all 4 limbs Psychiatric: normal affect, A&O x 3 Dx/Plan (1) GI bleed Code(s): K92.2 - GASTROINTESTINAL HEMORRHAGE, UNSPECIFIED Status: Acute Qualifiers: GI bleed type/associated pathology: gastric ulcer Qualified Code(s): K25.4 - Chronic or unspecified gastric ulcer with hemorrhage Comment: hiatal hernia with lower eso ulcer, gastric antral ulcer, duodenal bulb ulcer (2) Acute blood loss anemia Code(s): D62 - ACUTE POSTHEMORRHAGIC ANEMIA Status: Acute (3) CAD (coronary artery disease) Code(s): I25.10 - ATHSCL HEART DISEASE OF [place] CORONARY ARTERY W/O ANG PCTRS Status: Chronic Qualifiers: Coronary Disease-Associated Artery/Lesion type: bypass graft [place] vs. transplanted heart: [place] heart Associated angina: without angina Qualified Code(s): I25.810 - Atherosclerosis of coronary artery bypass graft(s) without angina pectoris (4) HTN (hypertension) Code(s): I10 - ESSENTIAL (PRIMARY) HYPERTENSION Status: Chronic Qualifiers: Hypertension type: essential hypertension Qualified Code(s): I10 - Essential (primary) hypertension (5) COPD (chronic obstructive pulmonary disease) Status: Chronic Qualifiers: COPD type: COPD with acute exacerbation Qualified Code(s): J44.1 - Chronic obstructive pulmonary disease with (acute) exacerbation - Plan Hb dropped down to 7.2g this am -: is going for second look EGD this evening -: cbc in am, if Hb less than 7g transfuse 1 u prbc in am -: dc plan in am if stable -: on protonix bid, coreg, norvasc and lipitor, off asp and plavix * . Review of Systems - Medications/Allergies Allergies/Adverse Reactions: Allergies Allergy/AdvReac Type Severity Reaction Status Date / Time amoxicillin Allergy Intermediate Rash Verified 04/09/18 12:25 Medications: Current Medications Acetaminophen (Tylenol) 650 mg PO Q4H PRN PRN Reason: Headache/Fever or Pain Last Admin: 04/10/18 22:10 Dose: 650 mg Albuterol/Ipratropium (Duoneb) 3 ml NEB [id number] [facility] Last Admin: 04/11/18 10:20 Dose: 3 ml Amlodipine Besylate (Norvasc) 5 mg PO DAILY [facility] Last Admin: 04/11/18 09:09 Dose: 5 mg Atorvastatin Calcium (Lipitor) 80 mg PO HS [facility] Last Admin: 04/10/18 22:10 Dose: 80 mg Azelastine HCl (Azelastine) 0 ml NS BID [facility] Last Admin: 04/11/18 10:56 Dose: Not Given Carvedilol (Coreg) 12.5 mg PO BID [facility] Last Admin: 04/11/18 09:10 Dose: 12.5 mg Loratadine (Claritin) 10 mg PO DAILY [facility] Last Admin: 04/11/18 09:10 Dose: 10 mg Mometasone Furoate/Formoterol Fumar (Dulera 200 Mcg/5 Mcg Inhaler) 2 puff INH BID-RT [facility] Last Admin: 04/11/18 07:55 Dose: 2 puff Multivitamins (Theragran) 1 tab PO DAILY [facility] Last Admin: 04/11/18 09:10 Dose: 1 tab Ondansetron HCl (Zofran) 4 mg IVP Q6H PRN PRN Reason: Nausea/Vomiting Pantoprazole Sodium (Protonix) 40 mg PO BID [facility] Last Admin: 04/11/18 09:09 Dose: 40 mg Sodium Chloride (Flush - Normal Saline) 10 ml IVF Q12HR [facility] Last Admin: 04/11/18 09:12 Dose: Not Given Sodium Chloride (Flush - Normal Saline) 10 ml IVF PRN PRN PRN Reason: Saline Flush
[2018-04-11] MEDS ORDERED: Ondansetron HCl/PF 4 MG/2 ML Vial IVP PRN (16:30)
[2018-04-11] MEDS ORDERED: SUGAMMADEX SODIUM 500 MG/5 ML VIAL ONE (16:35)
--- NOTE | 2018-04-11 16:58 | EKG ---
Test Reason : STAT Blood Pressure : / mmHG Vent. Rate : 085 BPM Atrial Rate : 085 BPM P-R Int : 160 ms QRS Dur : 098 ms QT Int : 374 ms P-R-T Axes : 049 025 060 degrees QTc Int : 445 ms Sinus rhythm with occasional Premature ventricular complexes Inferior infarct , age undetermined Nonspecific ST-T changes Abnormal ECG No previous ECGs available Confirmed by DR. Warren BUENO ([id number]) on 04/11/2018 4:57:59 PM Referred By: TIFFANY Confirmed By:DR. Warren BUENO
[2018-04-11] MEDS ORDERED: Fentanyl 100 MCG/2 ML VIAL ONE (17:24)
[2018-04-11] MEDS ORDERED: Sodium Chloride For Inhalation 0.9% 3 ML NEB ONE (18:12)
[2018-04-11] MEDS ORDERED: Cepastat Lozenges 1 LOZ PO PRN (21:33)
[2018-04-11] MEDS: Acetaminophen 325 MG TAB PO PRN (22:07)
[2018-04-11] MEDS: Atorvastatin Calcium 40 MG TAB PO SCH (22:07)
--- NOTE | 2018-04-11 22:30 | OP ---
DATE OF PROCEDURE: 04/11/2018 GI ENDOSCOPY NOTE SURGEON: Julio C Lyons M.D. CERTIFIED PHARMACY TECHNICIAN SURGEON: None. PROCEDURE: Esophagogastroduodenoscopy, diagnostic. INDICATIONS: 1. History of gastric ulcer, status post treatment with bipolar cautery [address] Hammonds. 2. Acute blood loss anemia, necessitating second look upper endoscopy. MEDICATIONS: See anesthesia record. FINDINGS: After discussion of the risks, benefits and alternatives of the procedure, informed consen t was obtained and witnessed. Pre-endoscopic cardiopulmonary examination was satisfactory. Timeout was performed before sedation was achieved. Sedation was achieved with anesthesia assistance in the endoscopy unit. The patient was endotracheally intubated under general anesthesia. A Pentax adult u pper endoscope was placed into the oropharynx and passed through the cricopharyngeus under direct vis ualization. The proximal, mid and distal esophageal mucosa appeared normal. At the GE junction, the re is a small ulceration. This corresponds with the area that Dr. Hammonds treated with bipolar cautery a couple of days ago. There are no stigmata of hemorrhage in this area. There is what appears to b e a small vessel, but I see no stigmata of any prior hemorrhage. The endoscope was advanced into the stomach. Forward and retroflexed views of the entire gastric mucosa were obtained. There is no catherine dence of any old blood or active bleeding throughout the stomach. There is no evidence of any esopha geal or gastric varices. In the gastric body along the greater curvature, there is a large shallow u lceration. This corresponds with what was visualized a couple of days ago; however, at this time, th is ulcer is clean based. There is no visible vessel, no high risk stigmata for bleeding. No biopsie s or intervention was performed today. The endoscope was passed through the pylorus and into the fir st and second portions of the duodenum. There is some erosive duodenitis in the duodenal bulb and se cond portion of the duodenum, but no evidence of any bleeding lesion. The upper endoscope was comple tely withdrawn and the patient allowed to recover. The patient tolerated the procedure well. There were no immediate post-procedure complications. IMPRESSION: 1. No evidence of any old blood or active bleeding on this exam. 2. Large gastric ulcer along the greater curvature, with a clean base, no stigmata of bleeding. 3. Duodenitis. 4. Ulcer at the gastroesophageal junction, representing recent cautery treatment a couple of days ag o, with no high risk stigmata of hemorrhage in this area. RECOMMENDATIONS: 1. Continue oral PPI twice daily. 2. Resume heart healthy diet. 3. Trend hemoglobin and hematocrit tomorrow.
[2018-04-12] MEDS: Mometasone/Formoterol 120 PUFF INHALER INH SCH (07:54)
[2018-04-12] MEDS: Azelastine 137 MCG/Spray 30 ML NS SCH (09:55)
[2018-04-12] MEDS: Carvedilol 6.25 MG TAB PO SCH (09:55)
[2018-04-12] MEDS: Amlodipine 5 MG TAB PO SCH (09:55)
[2018-04-12] MEDS: Multivit, Therapeutic 1 TAB PO SCH (09:55)
[2018-04-12] MEDS: Loratadine 10 MG TAB PO SCH (09:55)
[2018-04-12 13:00] LABS: Anisocytosis SLIGHT = 6-15 cells (100X) (0-5/hpf); Band 2 % (5-11); Hemoglobin 7.2 g/dL (14.0-18.0); Lymphocytes 17 % (21-51); MDiff Complete? YES; Mean Corpuscular HGB CONC 33.7 g/dL (32.0-36.0); Mean Corpuscular Volume 89.1 fL (78.0-98.0); Mean Platelet Volume 7.1 fL (7.4-10.4); Metamyelocyte 1 % (0-0); Microcytosis SLIGHT = 6-15 cells (100X) (0-5/hpf); Monocytes 3 % (0-10); Neutrophil 77 % (42-75); Platelet Count 175 thou/uL (130-400); Polychromasia SLIGHT = 2-3 cells (100X) (0-2/hpf); RBC Distribution Width 12.7 % (11.5-14.5); Red Blood Cell (RBC) Count 2.41 mill/uL (4.70-6.10); White Blood Cell (WBC) Count 17.8 thou/uL (4.8-10.8)
[2018-04-12 13:31] VITALS: TEMP 97.7
[2018-04-12 13:32] VITALS: BP 111/58
--- NOTE | 2018-04-12 15:45 | PDOC.PN ---
- Subjective Encounter Start Date: 04/12/18 Encounter Start Time: 14:10 Subjective: no further bleeding or black stools -: no sob or chest pain - Objective Resuscitation Status: Resuscitation Status FULL:Full Resuscitation MAR Reviewed: Yes Vital Signs & Weight: Vital Signs (12 hours) Temp Pulse Resp BP Pulse Ox 04/12/18 12:19 97.7 F 75 16 111/58 L 92 L 04/12/18 10:46 94 16 04/12/18 08:00 97.9 F 69 20 04/12/18 07:54 67 18 96 04/12/18 04:00 98.4 F 69 20 101/53 L 95 Weight Admit Weight 196 lb 8 oz Weight 196 lb 8 oz I&O: 04/11/18 04/12/18 04/13/18 06:59 06:59 06:59 Intake Total 1350 Output Total 650 Balance 1350 -650 Result Diagrams: 04/12/18 08:57 04/11/18 08:26 Phys Exam - Physical Examination HEENT: PERRLA, moist MMs Neck: no JVD, supple Respiratory: no wheezing, no rales Cardiovascular: RRR, no significant murmur Gastrointestinal: soft, non-tender, positive bowel sounds Musculoskeletal: no edema, pulses present Neurological: non-focal, moves all 4 limbs Psychiatric: normal affect, A&O x 3 Dx/Plan (1) GI bleed Code(s): K92.2 - GASTROINTESTINAL HEMORRHAGE, UNSPECIFIED Status: Acute Qualifiers: GI bleed type/associated pathology: gastric ulcer Qualified Code(s): K25.4 - Chronic or unspecified gastric ulcer with hemorrhage Comment: hiatal hernia with lower eso ulcer, gastric antral ulcer, duodenal bulb ulcer (2) Acute blood loss anemia Code(s): D62 - ACUTE POSTHEMORRHAGIC ANEMIA Status: Acute (3) CAD (coronary artery disease) Code(s): I25.10 - ATHSCL HEART DISEASE OF [place] CORONARY ARTERY W/O ANG PCTRS Status: Chronic Qualifiers: Coronary Disease-Associated Artery/Lesion type: bypass graft [place] vs. transplanted heart: [place] heart Associated angina: without angina Qualified Code(s): I25.810 - Atherosclerosis of coronary artery bypass graft(s) without angina pectoris (4) HTN (hypertension) Code(s): I10 - ESSENTIAL (PRIMARY) HYPERTENSION Status: Chronic Qualifiers: Hypertension type: essential hypertension Qualified Code(s): I10 - Essential (primary) hypertension (5) COPD (chronic obstructive pulmonary disease) Status: Chronic Qualifiers: COPD type: COPD with acute exacerbation Qualified Code(s): J44.1 - Chronic obstructive pulmonary disease with (acute) exacerbation - Plan no rebleed on 2nd EGD -: feels better -: h/h stable, no need for transfusion now -: dc pt home on protonix and oral iron -: to f/u with GI in [facility] in 4 weeks. * . Review of Systems - Medications/Allergies Allergies/Adverse Reactions: Allergies Allergy/AdvReac Type Severity Reaction Status Date / Time amoxicillin Allergy Intermediate Rash Verified 04/09/18 12:25
--- NOTE | 2018-04-13 01:22 | DIS ---
DATE OF ADMISSION: 04/09/2018 DATE OF DISCHARGE: 04/12/2018 DISCHARGE DISPOSITION: To home. PRIMARY DISCHARGE DIAGNOSES: Gastrointestinal bleed with lower esophageal ulcer , gastric antral ulcer, duodenal bulb ulcer, acute blood loss anemia. SECONDARY DISCHARGE DIAGNOSES: Coronary artery disease, hypertension, chronic obstructive pulmonary disease with mild exacerbation. PROCEDURES DONE DURING HOSPITALIZATION: The patient had initial upper endoscopy done on 04/09/[address] Mak Hammonds, which showed large hiatal hernia with mild oozing and bleeding at the lower distal esophagus requiring bipolar cauterization. He also had a 2-3 mm small superficial ulceration seen in the distal body without bleed. A 5-6 mm cratered ulceration was seen along the lesser curvature in the proximal antrum with dark spot in the center, status post bipolar cauterization with good hemostasis. He also had 2 small clean based ulcerations seen in the duodenal bulb. The patient had repeat upper endoscopies for a second look done on 04/11/[address] Julio C Lyons, which showed no active bleeding, confirmed the prior ulcerations seen. Echo with 2D Doppler showed EF of 40%-45% with likely diastolic dysfunction, moderately enlarged right atrium. Discharge H&H 7.2 and 21, admitting H&H were 9.5 and 27 , MCV is 89, platelet count 176. BUN and creatinine 26 and 0.8. Initial BUN and creatinine was 56 and 0.79. Cardiac enzymes x2 are negative. PT, INR, PTT within normal limits. INPATIENT CONSULTS: Dr. Mak Hammonds for Gastroenterology, Dr. Qureshi for Cardiology and Dr. Garza for Pulmonary and Critical Care. DISCHARGE MEDICATIONS: Ferrous sulfate 325 mg p.o. twice daily, Protonix 40 mg p.o. twice daily both for a period of 2 months; multivitamin 1 tab once daily; lisinopril 20 mg daily; albuterol inhaler q.6 hourly p.r.n.; atorvastatin 80 mg p.o. daily; Coreg 12.5 mg twice daily; Dana 180 mg p.o. daily; Norvasc 5 mg daily. ALLERGIES: Allergic to AMOXICILLIN. DISCHARGE INSTRUCTIONS: The patient is to follow up with a GI specialist in the [place] area in 4-8 weeks and primary care physician in 1 week. BRIEF COURSE DURING HOSPITALIZATION: The patient initially came to emergency room with complaints of melena. He has had nearly 5-6 times of dark black- colored diarrhea. 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 He had come for the game here. The patient essentially was admitted to [facility] for acute blood loss anemia and GI bleed. He has had upper endoscopy done and please see the findings described above. The patient's H&H dropped after 24 hours and had a second look EGD which showed stable ulcerations with no active bleeding. He is advised to continue ferrous sulfate and Protonix as prescribed. The patient needs to have a repeat upper endoscopy in 8 weeks to see for complete resolution of the ulcerations. He is advised to hold off on aspirin and Plavix for at least 2 weeks before restarting it. During the course of his stay, the patient had intraventricular conduction rhythm, likely because he was not on his Coreg for nearly 12 hours or so. Once he was placed back on his home dose of Coreg, patient has not had any arrhythmias. The patient has had mild chronic obstructive pulmonary disease exacerbation with his ongoing smoking and was placed on IV steroids along with nebulization for 24 hours and the steroids were discontinued after that. He is hemodynamically stable, ambulating, and tolerating oral diet prior to discharge. Please see a face to face documentation on [facility] for the day of discharge. [facility]
== END 2018-04-12 12:20 | disposition home or self-care (01) | DRG 378 ==
LOC: IMCU/EMU 12:14 → 2SE 04-10 10:53
PROVIDERS: ADMIT Family Medicine; ATTEND Family Medicine
PROC: 0W3P8ZZ Control Bleeding in Gastrointestinal Tract, Via Natural or Artificial Opening Endoscopic (ICD-10-PCS; principal; 2018-04-09)
PROC: 0DJ08ZZ Inspection of Upper Intestinal Tract, Via Natural or Artificial Opening Endoscopic (ICD-10-PCS; 2018-04-11)
DX: K25.4 Chronic or unspecified gastric ulcer with hemorrhage (principal); D62 Acute posthemorrhagic anemia; J44.1 Chronic obstructive pulmonary disease with (acute) exacerbation; K22.10 Ulcer of esophagus without bleeding; I25.10 Atherosclerotic heart disease of native coronary artery without angina pectoris; E78.5 Hyperlipidemia, unspecified; K44.9 Diaphragmatic hernia without obstruction or gangrene; K26.9 Duodenal ulcer, unspecified as acute or chronic, without hemorrhage or perforation; K29.80 Duodenitis without bleeding; I49.8 Other specified cardiac arrhythmias; I11.9 Hypertensive heart disease without heart failure; F17.210 Nicotine dependence, cigarettes, uncomplicated; Z95.1 Presence of aortocoronary bypass graft; Z88.0 Allergy status to penicillin; Z79.02 Long term (current) use of antithrombotics/antiplatelets; Z79.82 Long term (current) use of aspirin
CPT/HCPCS: 36415; 80048; 80306; 80307; 82553; 84484; 85014; 85018; 85025; 85610; 85730; 93005; 93010; 93306; 94640; A4216; C9113; J2704; J2920; J3010; J7050; J7620